=== PATIENT | male | born 1985 | race Caucasian/White ===

== ENCOUNTER 2017-06-06 23:03 | Emergency (ER) | payer SELFPAY ==
[~2017-06-06] VITALS: Ht 172.7 cm; Wt 100.0 kg
[2017-06-07 00:09] VITALS: BP 142/84
== END 2017-06-07 07:48 | disposition left against medical advice (07) ==
LOC: ER 06-07 07:48
DX: R10.9 Unspecified abdominal pain (principal); Z53.21 Procedure and treatment not carried out due to patient leaving prior to being seen by health care provider